=== PATIENT | male | born 2005 | race Caucasian/White ===

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

== ENCOUNTER 2025-07-07 13:05 | Emergency (ER) | payer OTHER, SELFPAY ==
--- OUTSIDE RECORDS SUMMARY | 2024-09-30 08:15 | XMS_ITS ---
Author Organization [facility], [place] Address [address] [place] [address] Care Team Providers Care Lead Java Developer Architect Name Role Phone Anitra Heller Primary Care Provider Karlie Wills [phone] Allergies No Known Allergies REASON FOR VISIT Vivitrol Inj Medications Medication SIG (Take, Route, Frequency, Duration) Notes Start Date End Date Status Citalopram Hydrobromide 20 MG 1 tablet Orally Once a day A ctive Vivitrol 380 MG as directed Intramus cular every 4 weeks; Duration: 07/01/2024 Active Social History Tobacco Use: Social History Observation Description Date Details (start date - stop date) Current Smoker NA - NA Tobacco Control (Standard) Question Answer Notes Tobacco use: Current smoker How often do you smoke cigarettes? Every day How many cigarettes a day do you smoke? 5 or les s Section Notes: High school/GED education Tattoos Encounters Encounter Location Date Provider Diagnosis [address] [address] 09/30/2024 Karlie Wills Plan Of Treatment No Information Progress Notes * Corinne FENTONOB:2005 (20 yo M)Acc No.[id number]:09/30/2024 Patient: Kathleen GUDINOor Provider: Viridiana Wills APRN :2005 A ge:19 Y S ex:Male Date:09/30/2024 Phone: Address:[place] [place], [place]-[id number] Pcp:Anitra Heller Subjective: * Chief Complaints: * 1 . Vivitrol Inj. * Medical History: I nsomnia, Anxiety. * Surgical History: M ultiple Left leg surgeries , Umbilical Hernia . * Hospitalization/Major Diagno stic Procedure: D enies Past Hospitalization. * Family History: Denies any family history. * Social History: T obacco Use: T obacco Control (Standard) T obacco use: C urrent smoker H ow often do you smoke cigarettes? E very day H ow many cigarettes a day do you smoke? 5 or less D rugs/Alcohol: D rugs H ave you used drugs other than those for medical reasons in the past 12 months? Y es H eroin? A dmits to snorting $30-$50 worth daily beginning at age 18 with date of last use 04/11/24 P rescription opiates? A dmits to taking by mouth 3-5 bars xanax daily beginning at age 18 with date of last use 04/11/24 H igh school/GED education Tattoos. * Medications: T aking Citalopram Hydrobromide 20 MG Tablet 1 tablet Orally Once a day , Taking Vivitrol 380 MG Suspension Reconstituted as directed Intramuscular every 4 weeks , Medication List reviewed and reconciled with the patient * Allergies: N .K.D.A. Objective: * Vitals: Assessment: Plan: * Treatment: * Images: Billing Information: * Visit Code: * Procedure Codes: * Electronic signature of Saad Wills APRN on 07/07/2025 at 02:10 PM EDT Sign off status: Pending Visit Status: C ANC (Cancelled) * Provider: Viridiana Wills APRN Date: 11/30/2023 Generated for Jeremiah parks/Radha/Rufino on: 0 07/07/2025 02:10 PM EDT
--- NOTE | 2025-07-07 13:55 | ED_ITS ---
<Statement entered by Gypsy Dean MD - 07/08/25 15:56> I was consulted by the YURIY, and we discussed the complexity of the problems being addressed. I approved the treatment and management plan for this patient's care in the emergency department, thus performing a substantive portion of the medical decision making. Gypsy Dean MD, MANPREET, FACEP Discharge Plan Disposition Patient Disposition: Home, Self-Care Prescriptions Prescriptions: New amoxicillin-pot clavulanate 875-125 mg tablet 1 tab PO BID Qty: 20 0RF No Action buprenorphine-naloxone 8-2 mg tablet, sublingual See Rx Instructions .ROUTE .COMPLEX Rx Instructions: daily Referrals Follow up/Referrals: Provider,Referral, [Primary Care Provider, Medical] - See instructions Activity Restrictions/Add. Instructions Additional Instructions/Restrictions: Keep nail covered until healed. Wash with soap and water daily. Wear shoes and socks until it is healed. If any fevers or chills please return to your PCP or ER. Clinical Impressions Clinical Impression: Ingrown nail, Cellulitis Stand Alone Forms Stand Alone Forms: Work/School Release Instructions Patient Instructions: Cellulitis, DI for Infected Ingrown Toenail Print Language Print Language: Togolese Discharge ED Provider: Gypsy Dean General Adult HPI General Chief complaint: Extremity Injury, Lower Stated complaint: ingrown toenail-bleeding Time Seen by Provider: 07/07/25 13:47 History of Present Illness HPI narrative: 20-year-old male presents to the ED today for complaint of left great toe pain. He says that it was an ingrown and he went to the [facility] and they told him to go see podiatry and take antibiotics. Last night he hit his toe on something metal and this caused a lot of bleeding. He says he is not sure what he hit his toe on but knows that it is painful and bleeding. Related Data Home Medications ?Medication ?Instructions ?Recorded ?Confirmed buprenorphine 8 mg-naloxone 2 mg See Rx Instructions . Route .COMPLEX 07/07/25 07/07/25 sublingual tablet Previous Rx's ?Medication ?Instructions ?Recorded amoxicillin 875 mg-potassium 1 tab PO BID #20 tabs clavulanate 125 mg tablet Allergies Allergy/AdvReac Type Severity Reaction Status Date / Time No Known Allergies Allergy Verified 07/07/25 14:[address] [place] [address] Disclaimer: The information contained in this section may have been updated after the patient was seen, as this information can be updated by other users. Social History Smoking Status: Current every day smoker alcohol intake: never substance use type: denies use current occupational status: student Travel in the last 8 weeks?: Inside the [place] household members: family number of children: 0 Have you lived/traveled outside US in past 30 days?: No Contact w/someone who lives/traveled outside US past 30 days?: No Exposure to someone with infectious disease in past 14 days?: No Do you have a fever (greater than 100.4 F or 38 C)?: No Have you tested positive for COVID-19?: No Exposed to someone with COVID-19 in past 14 days?: No Do you have a sore throat?: No Do you have a cough?: No Do you have any weakness?: No Do you have any diarrhea?: No Are you experiencing any unusual bleeding?: No Do you have any muscle aches/pain?: No Do you have any abdominal pain?: No Are you experiencing loss of taste or smell?: No Other Medical History Have you received the Flu Vaccine for this season: No Have you received the Pneumonia Vaccine: No ROS Obtained: Yes Systems reviewed as appropriate & no additional complaints except as documented Physical Exam General General appearance: alert Head Head exam: normocephalic Eye Eye exam: Present PERRL and EOMI ENT ENT exam: Present mucous membranes moist Neck Neck exam: Present trachea midline Respiratory Respiratory exam: Present normal lung sounds bilaterally Cardiovascular Cardiovascular exam: Present regular rate, normal rhythm, normal heart sounds, +S1 and +S2 Extremities Exam Extremities exam: Present full ROM and normal capillary refill Neurological Exam Neurological exam: Present alert and oriented X3 Skin Skin exam: Present warm, dry and other (Left great toe with blood present, letting it soak to determine real etiology) Medical Decision Making Medical Records Screening: Per USPSTF and CDC recommendations, given the prevalence of disease in our region, it is our hospital?s policy to screen for HIV and viral Hepatitis for all patients aged 18 and over and those with ongoing risk factors. Jose Antonio Inquiry Pt receiving controlled substance: No Jose Antonio was queried for this patient: No Vital Signs: 07/07/25 13:59 07/07/25 14:47 Temperature 98.4 F 98.4 F Temperature Source Oral Oral Pulse Rate 86 Pulse Rate [Left] 86 Respiratory Rate 16 16 Blood Pressure 133/79 Blood Pressure [Right Arm] 133/79 Blood Pressure Mean [Right Arm] 97 Blood Pressure Source Automatic Cuff Blood Pressure Source [Right Arm] Automatic Cuff Blood Pressure Position Sitting Blood Pressure Position [Right Arm] Sitting 02 Sat by Pulse Oximetry 97 Oxygen Delivery Method Room Air Room Air Orders (Tests/Meds): ED MEDICATIONS Discontinued Medications Generic Name Dose Route Start Last Admin Trade Name Merrick PRN Reason Stop Dose Admin Lidocaine/Epinephrine 20 ml 07/07/25 14:09 07/07/25 14:31 Lidocaine 1% W/Epi 1:100,000 20ml Vial SQ 07/07/25 14:10 10 ml ONCE ONE Administration Tetanus/Reduced Diphtheria/Acell Pertussis 0.5 ml 07/07/25 14:12 07/07/25 14:30 Tet/Diphth/Pert-Adult 0.5ml Syringe IM 07/07/25 14:13 0.5 ml .ONCE ONE Administration Medical Decision Narrative: patient is a 20-year-old male presenting to the emergency department for evaluation of injury to left great toe and ingrown nail. Patient is hemodynamically stable and nontoxic-appearing upon arrival, afebrile. Differential diagnosis includes ingrown nail, infection, among others. Soaked his foot in Hibiclens, cleaned up the toe, removed the ingrown part of the left great nail and we will place patient on Augmentin. Gave patient home care instructions and told to follow-up. Patient safe for discharge home. Procedures Miscellaneous Procedure Procedure Performed: Did a digital block on the left great toe and removed partial toenail. Used 1% lidocaine with epi. Using approximately 10 mL. Covered with gauze and wrap. Gave patient home care instructions. Critical Care Critical Care Time Critical Care Time: No
[2025-07-07 13:59] VITALS: BP 133/79; PULSE 86; RESP 16; TEMP 36.9; O2SAT 97; BMI 35.2
--- OUTSIDE RECORDS SUMMARY | 2025-07-07 14:11 | XMS_ITS | Clinical Summary ---
Author Organization [facility] Address [address] [place] [id number] Care Team Providers Care Sales Representative Sales Manager Name Role Phone Harley Peterson M.D. Primary Care Provider + Source Comments [facility] is fully rolled [facility] with thefollowing exceptions:[facility] Allergies No known active allergies Medications aspirin (ASA) 81 MG chewable tablet Chew 1 Tab (81 mg total) 1 time a day. 30 Tab 3 12/18/2015 Active guanFACINE (INTUNIV) 1 MG extended release tablet Take 1 mg by mouth 2 times a day. Active traZODone (DESYREL) 50 MG tablet Take 50 mg by mouth every evening. Active Active Problems Problem Noted Date Diagnosed Date S/P ablation of ventricular arrhythmia 6 Wide-complex tachycardia 12/13/2015 Social History Tobacco Use Types Packs/Day Years Used Date Smoking Tobacco: Never Assessed Sex and Gender Information Value Date Recorded Sex Assigned at Not on file Legal Sex Male 3:16 PM EST Gender Identity Not on file Sexual Orientation Not on file Last Filed Vital Signs Vital Sign Reading Time Taken Comments Blood Pressure 94/58 02/14/2016 11:00 AM EDT Pulse 80 02/14/2016 11:00 AM EDT Temperature 36.9 C (98.4 F) 12/19/2015 3:24 PM EST Respiratory Rate 16 02/14/2016 11:00 AM EDT Oxygen Saturation 98% 02/14/2016 11:00 AM EDT right hand Inhaled Oxygen Concentration - - Weight 41.9 kg (92 lb 6 oz) 02/14/2016 11:00 AM EDT Height 141.5 cm (4' 7.71 ) 02/14/2016 11:00 AM E DT Body Mass Index 20.93 02/14/2016 11:00 AM EDT Plan of Treatment Health Maintenance Due Date Last Done Comments MMR IMMUNIZATION (1 of 1 - S tandard series) 2005 DTAP/Tdap/Td IMMUNIZATION (1 - Tdap) 2011 VARICELLA IMMUNIZATION (1 of 2 - 13+ 2-dose series) 2017 HPV IMMUNIZATION (1 - Male 3 -dose series) 2019 MENINGOCOCCAL B VACCINE (1 o f 2 - Standard) 2020 HEPATITIS B IMMUNIZATION (1 of 3 - 19+ 3-dose series) 2023 COVID-19 Vaccine (1 - 2023-2 5 season) 2024 AMB SEASONAL FLU VACCINE (#1) 09/18/2025 HIB IMMUNIZATION Aged Out No longer e ligible based on patient's age to complete this topic IPV IMMUNIZATION Aged Out No longer e ligible based on patient's age to complete this topic MCV4 IMMUNIZATION Aged Out No longer eligible based on patient's age to complete this topic PNEUMOCOCCAL IMMUNIZATION Aged Out No longer eligible based on patient's age to complete this topic Respiratory Syncytial Virus (RSV) <20mo Aged Out No longer eligible b ased on patient's age to complete this topic Medical Devices Implanted Type Area Insert Molding Operator Device Identifier Shelf Expiration Date Model / Serial / Lot Device Loop Rec Reveal Linq - [id number] Implanted:Qty : 1 on 12/16/2015 by Emanuel Pettit M.D. at [facility] Cardiovascular N/A: Chest [employer] 03/15/2016 [id number] / [id number] / Insurance [employer] [facility] Care Teams Sales Representative Sales Manager Relationship Specialty Start Date End Date Harley Peterson M.D. [address] [place] [id number] PCP - General 10/20/18
--- OUTSIDE RECORDS SUMMARY | 2025-07-07 14:11 | XMS_ITS | Patient Health Record ---
Author Organization [email or web address] [place] Address [address] [facility] [place] [address] Care Team Providers Care Laboratory Equipment Cleaner Name Role Phone Arron Anitra Primary Care Provider Karlie Wills Unavailable [phone] Allergies No Known Allergies Reason For Referral No Information Medications Medication SIG (Take, Route, Frequency, Duration) [...] s Section Notes: High school/GED education Tattoos High school/GED education Tattoos High school/GED education Tattoos High school/GED education Tattoos High school/GED education Tattoos Problems Problem Type SNOMED Code ICD Code Onset Dates Problem Status W/U Status Risk Notes Problem Alcohol dependence (30215504) Uncomplicated alcohol dependence (F10.20) Active confirmed Problem Opioid dependence (80427844) Uncomplicated opioid dependence (F11.20) Active confirmed Vital Signs Heart Rate 85 /min 09/02/2024 Blood pressure diastolic 76 mm Hg 09/02/2024 Oximetry 97 % 09/02/2024 Height 71 in 09/02/2024 Blood pressure systolic 130 mm Hg 09/02/2024 Encounters Encounter Location Date Provider Diagnosis [facility] [address] [place] [address] 07/07/2024 Anitra Heller Uncomplicated opioid dependence F11.20 and Uncomplicated alcohol dependence F10.20 [facility] [address] [place] [id number] 08/05/2024 Karlie Wills Uncomplicated opioid dependence F11.20 and Uncomplicated alcohol dependence F10.20 [facility] [address] [place] [address] 09/02/2024 Karlie Wills Uncomplicated opioid dependence F11.20 and Uncomplicated alcohol dependence F10.20 Assessments Encounter Date Diagnosis (ICD Code) Assessment Notes Treatment Notes Treatment Clinical Notes Section Notes 07/07/2024 Uncomplicated opioid dependence (ICD-10 - F11.20) Risks and benefits of Vivitrol administration discussed with patient. Written consent obtained by PRS/ [facility] staff. UDS obtained and confirmed to be negative for opiates. Oral challenge (naltrexone 50mg) administered previously and was tolerated well without adverse s/e or signs of withdrawal. Vivitrol injection administered by PRS staff, patient tolerated well without signs of adverse reaction or withdrawal. Patient advised to notify close family member/support system and any medical providers of Vivitrol use and keep documentation in wallet indicating Vivitrol use in case of emergency. RTC approx. 28 days for next injection. Pt understands to contact our office/PRS staff promptly for adverse s/e, questions, or concern for relapse. Continue with counseling/treatme nt for addiction and recovery. 08/05/2024 Uncomplicated opioid dependence (ICD-10 - F11.20) Risks and benefits of Vivitrol administration discussed with patient. Written consent obtained by PRS/ [facility] staff. UDS obtained and confirmed to be negative for opiates. Oral challenge (naltrexone 50mg) administered previously and was tolerated well without adverse s/e or signs of withdrawal. Vivitrol injection administered by PRS staff, patient tolerated well without signs of adverse reaction or withdrawal. Patient advised to notify close family member/support system and any medical providers of Vivitrol use and keep documentation in wallet indicating Vivitrol use in case of emergency. RTC approx. 28 days for next injection. Pt understands to contact our office/PRS staff promptly for adverse s/e, questions, or concern for relapse. Continue with counseling/treatme nt for addiction and recovery. 09/02/2024 Uncomplicated opioid dependence (ICD-10 - F11.20) Risks and benefits of Vivitrol administration discussed with patient. Written consent obtained by PRS/ [facility] staff. UDS obtained and confirmed to be negative for opiates. Oral challenge (naltrexone 50mg) administered previously and was tolerated well without adverse s/e or signs of withdrawal. Vivitrol injection administered by PRS staff, patient tolerated well without signs of adverse reaction or withdrawal. Patient advised to notify close family member/support system and any medical providers of Vivitrol use and keep documentation in wallet indicating Vivitrol use in case of emergency. RTC approx. 28 days for next injection. Pt understands to contact our office/PRS staff promptly for adverse s/e, questions, or concern for relapse. Continue with counseling/treatme nt for addiction and recovery. 09/02/2024 Uncomplicated alcohol dependence (ICD-10 - F10.20) Risks and benefits of Vivitrol administration discussed with patient. Written consent obtained by PRS/ [facility] staff. UDS obtained and confirmed to be negative for opiates. Oral challenge (naltrexone 50mg) administered previously; tolerated well without adverse s/e or signs of withdrawal. Vivitrol injection administered by PRS staff, patient tolerated well without signs of adverse reaction or withdrawal. Patient advised to notify close family member/support system and any medical providers of Vivitrol use and keep documentation in wallet indicating Vivitrol use in case of emergency. RTC approx. 28 days for next injection. Pt understands to contact our office/PRS promptly for adverse s/e, questions, or concern for relapse. Continue with counseling/treatme nt for addiction and recovery. 08/05/2024 Uncomplicated alcohol dependence (ICD-10 - F10.20) Risks and benefits of Vivitrol administration discussed with patient. Written consent obtained by PRS/ [facility] staff. UDS obtained and confirmed to be negative for opiates. Oral challenge (naltrexone 50mg) administered previously; tolerated well without adverse s/e or signs of withdrawal. Vivitrol injection administered by PRS staff, patient tolerated well without signs of adverse reaction or withdrawal. Patient advised to notify close family member/support system and any medical providers of Vivitrol use and keep documentation in wallet indicating Vivitrol use in case of emergency. RTC approx. 28 days for next injection. Pt understands to contact our office/PRS promptly for adverse s/e, questions, or concern for relapse. Continue with counseling/treatme nt for addiction and recovery. 07/07/2024 Uncomplicated alcohol dependence (ICD-10 - F10.20) Risks and benefits of Vivitrol administration discussed with patient. Written consent obtained by PRS/ [facility] staff. UDS obtained and confirmed to be negative for opiates. Oral challenge (naltrexone 50mg) administered previously; tolerated well without adverse s/e or signs of withdrawal. Vivitrol injection administered by PRS staff, patient tolerated well without signs of adverse reaction or withdrawal. Patient advised to notify close family member/support system and any medical providers of Vivitrol use and keep documentation in wallet indicating Vivitrol use in case of emergency. RTC approx. 28 days for next injection. Pt understands to contact our office/PRS promptly for adverse s/e, questions, or concern for relapse. Continue with counseling/treatme nt for addiction and recovery. Plan Of Treatment No Information Insurance Providers Payer Name Payer Address Payer Phone Subscriber Number Group Number Insured Name Patient Relationship to Insured Coverage Start Date Coverage End Date [facility] [place] [address] [address] [place] [phone] [id number] Jose Fenton Self - patient is the insured 4 Medical (General) History Medical History History ICD Code insomnia anxiety Surgical History Surgery Date(Month/Year) Multiple Left leg surgeries Umbilical Hernia
[2025-07-07] MEDS: TET/DIPHTH/PERT-ADULT 0.5ML SYRINGE 0.5 ML IM (14:30)
[2025-07-07] MEDS: LIDOCAINE 1% W/EPI 1:100,000 20ML VIAL 20 ML SQ (14:31)
[2025-07-07 14:47] VITALS: BP 133/79; PULSE 86; RESP 16; TEMP 36.9; O2SAT 97
== END 2025-07-07 14:48 | disposition home or self-care (01) ==
PROVIDERS: Emergency Provider Student in an Organized Health Care Education/Training Program
DX: L03.116 Cellulitis of left lower limb (principal); L60.0 Ingrowing nail
CPT/HCPCS: 11750; 90471; 90715; 99283; J2004